=== PATIENT | male | born 1980 | race Caucasian/White ===

== ENCOUNTER 2018-07-21 05:49 | Day surgery (SDC) | payer BC, OTHER ==
--- NOTE | 2018-07-19 12:36 | RAD ---
EXAM DESCRIPTION: Chest,2 Views CLINICAL HISTORY: PREOP FOR SURGERY, GALLBLADDER COMPARISON: None TECHNIQUE: PA/lateral FINDINGS: There is no acute appearing cardiac or pulmonary abnormality. Heart size is normal with normal pulmonary vascularity. No pleural effusion or pneumothorax. Lungs are clear with no consolidating infiltrate. Lateral view shows intact sternum and T-spine. IMPRESSION: No acute process is identified in the chest. Electronically signed by: Nik Razo MD 07/19/2018 12:34 PM CDT
[2018-07-21] MEDS ORDERED: raNITIdine HCL INJ 25 MG/ML VIAL ONE (07:00)
[2018-07-21] MEDS ORDERED: METOCLOPRAMIDE HCL INJ 10 MG/2 ML VIAL ONE (07:00)
[2018-07-21] MEDS ORDERED: SODIUM CHLORIDE 0.9% 50 ML VIAL ONE (07:00)
[2018-07-21] MEDS ORDERED: LIDOCAINE 1% 10 ML VIAL INJ ONE (07:00)
[2018-07-21] MEDS ORDERED: DEXAMETHASONE INJ 10 MG/ML VIAL ONE (07:00)
[2018-07-21] MEDS ORDERED: PROPOFOL 200 MG/20 ML VIAL IV ONE (07:00)
[2018-07-21] MEDS ORDERED: KETOROLAC TROMETHAMINE INJ 30 MG/ML VIAL ONE (07:00)
[2018-07-21] MEDS ORDERED: LACTATED RINGERS 1,000 ML ONE (07:12)
[2018-07-21] MEDS ORDERED: SODIUM CHL 0.9% 100ML MINI-BAG 100 ML IVPB ONE (07:12)
[2018-07-21] MEDS ORDERED: ceFAZolin SODIUM 1 GM VIAL ONE (07:12)
[2018-07-21] MEDS ORDERED: LACTATED RINGERS 1,000 ML BAG IV ONE (07:25)
[2018-07-21] MEDS ORDERED: MIDAZOLAM INJ 2 MG/2 ML VIAL ONE (08:02)
[2018-07-21] MEDS ORDERED: fentaNYL CITRATE INJ 50 MCG/ML AMP ONE (08:03)
[2018-07-21] MEDS ORDERED: ROCURONIUM BROMIDE 10 MG/ML VIAL ONE (08:03)
[2018-07-21] MEDS: BUPIVACAINE 0.25% W/EPI 50 ML VIAL INJ ONE ×2 (08:45→08:50)
[2018-07-21] MEDS: HEPARIN SODIUM (PORCINE) 10,000 UNITS/ML VIAL ONE ×2 (08:45→08:50)
[2018-07-21] MEDS ORDERED: ACETAMINOPHEN IV 1000MG 100 ML ONE (09:08)
[2018-07-21] MEDS ORDERED: HYDROmorphone HCL INJ 2 MG/ML VIAL ONE (09:36)
--- NOTE | 2018-07-21 10:38 | OP ---
DATE OF PROCEDURE: 07/21/18 PREOPERATIVE DIAGNOSIS: 1. Symptomatic cholelithiasis. POSTOPERATIVE DIAGNOSIS: 1. Symptomatic cholelithiasis. 2. Chronic cholecystitis. PROCEDURE: 1. Laparoscopic cholecystectomy with intraoperative cholangiography. SURGEON: Chapo Costello MD. DAIRY EQUIPMENT REPAIRER: None. ANESTHESIA: Local infiltration of 0.25% Marcaine with epinephrine and general endotracheal anesthesia. INDICATION: The patient is a 37-year-old male with fatty food intolerance, bloating, diarrhea and CT scan revealing gallstones. The patient was brought to the Surgical Suite today for cholecystectomy with cholangiography after the risks, benefits and alternatives to the procedure were discussed and accepted. FINDINGS: There were two large stones and a few small stones. The gallbladder wall was somewhat thickened. Intraoperative cholangiography revealed free flow into the duodenum with no filling defects or strictures noted. The cystic duct was an extremely short duct that came directly off the right hepatic duct. No other pathology was identified. DESCRIPTION OF PROCEDURE: After adequate general endotracheal anesthesia was obtained, the patient was prepped and draped in the usual sterile manner in the supine position. Surgical time-out was taken. The infraumbilical area was infiltrated with local anesthesia. A curvilinear incision was fashioned with a sharp knife and dissection was carried down through the skin and subcutaneous tissue to the midline fascia using electrocautery and blunt dissection. Traction sutures were placed on either side of the midline. A small incision was made in the midline fascia and the peritoneum was opened bluntly. Ankit trocar was introduced under direct vision into the abdominal cavity and fixed in place with the 20 mL balloon. CO2 was then insufflated until a pressure of 12 mmHg was reached and the abdomen was tympanitic in all four quadrants. When this was done, the laparoscope was introduced. The abdomen was inspected with the previously noted findings. The patient was then placed in reverse Trendelenburg position, turned to the left side. The upper abdominal ports were placed under direct vision. The gallbladder was grasped, retracted anteriorly and laterally. The neck of the gallbladder was retracted laterally. A number of adhesions to the neck of the gallbladder were then taken down using blunt dissection. The triangle of Calot was then explored. The cystic duct was noted to be extremely short and coming right off the bile duct. It was dissected free and clipped proximally. A small incision was made in the cystic duct. The cholangiogram catheter was introduced through a separate stab wound in the right upper quadrant, introduced into the cystic duct and clipped in place. Cholangiograms were then taken using fluoroscopy which revealed free flow into the duodenum, the cystic duct being short and directly into the right hepatic duct and there were no filling defects or strictures identified. When this was done, the cystic duct catheter was removed. The cystic duct was hemoclipped three times distally and divided between the hemoclips. The cystic artery was identified, clipped and divided. At this point, the gallbladder was dissected free from the gallbladder bed of the liver using electrocautery and blunt dissection. The gallbladder was then placed in an EndoCatch bag and removed from the infraumbilical port site in the usual manner under direct vision. When this was done, the subhepatic space was irrigated copiously with saline. There were a couple of areas of oozing from the gallbladder bed of the liver which were easily controlled with electrocautery. When this was done, the subhepatic space and subphrenic space were irrigated copiously with saline. The effluent was noted to be clear. There was no significant bleeding identified. The heber hepatis was inspected and no bleeding or bile leak was identified. At this point, the upper abdominal ports were removed under direct vision and adequate hemostasis was noted. At this point, the CO2, the laparoscope and the infraumbilical port were removed. The infraumbilical port site fascia was approximated with a single [id number] suture of 0 Vicryl. Subcutaneous tissue was irrigated with saline. Skin edges were approximated with 4-0 Vicryl subcuticular sutures, benzoin and Steri-Strips. Sterile dressings were applied. The patient was awakened and taken to the Recovery Room in good and stable condition. Estimated blood loss was approximately 50 mL. All sponge, needle and instrument counts were correct. #[id number] [facility]
[2018-07-21 11:56] VITALS: BP 131/78; TEMP 99.1; O2SAT 94
== END 2018-07-21 11:44 | disposition home or self-care (01) ==
LOC: AMB 05:49
PROVIDERS: ATTEND Surgery
DX: K80.10 Calculus of gallbladder with chronic cholecystitis without obstruction (principal); I10 Essential (primary) hypertension; K21.9 Gastro-esophageal reflux disease without esophagitis; F17.220 Nicotine dependence, chewing tobacco, uncomplicated; Z91.030 Bee allergy status; Z79.899 Other long term (current) drug therapy
CPT/HCPCS: 00790; 36415; 47563; 71046; 76000; 80053; 81001; 85025; A4216; J0690; J1100; J1170; J1644; J1885; J2250; J2765; J2780; J3010; J3490; J7050; J7120